=== PATIENT | female | born 1955 | race Caucasian/White ===

== ENCOUNTER → 2019-11-04 | Outpatient (CLI) | payer MEDICARE ==
--- NOTE | 2019-11-04 16:35 | BD ---
EXAMINATION TYPE: Axial Bone Density DATE OF EXAM: 11/04/2019 COMPARISON: NONE CLINICAL HISTORY: Height: 5 FT 2 IN Weight: 197 FRAX RISK QUESTIONS: Alcohol (3 or more units per day): NO Family History (Parent hip fracture): NO Glucocorticoids (More than 3mos): NO (Ex: prednisone, prednisolone, methylprednisolone, dexamethasone, and hydrocortisone). History of Fracture in Adulthood: NO Secondary Osteoporosis: 1. Type 1 Diabetes: NO 2. Hyperthyroidism: NO 3. Menopause before 45: NO 4. Malnutrition: NO 5. Chronic liver disease: NO Rheumatoid Arthritis: NO Current Tobacco Use: NO RISK FACTORS HISTORY OF: Family History of Osteoporosis: NO Active: YES Postmenopausal woman: AGE 55 MEDICATIONS: Additional Medications: XANAX, CITALOPRAM, LOVASTATIN, Additional History: EXAM MEASUREMENTS: Bone mineral densitometry was performed using the [employer]pirics System. Bone mineral density as measured about the Lumbar spine is: ----- L1-L4(G/cm2): 1.626 T Score Values are as follows: ----- L2: 2.2 ----- L3: 5.6 ----- L4: 4.7 ----- L1-L4: 3.7 BASELINE Bone mineral density about the R hip (g/cm2): 0.884 Bone mineral density about the L hip (g/cm2): 0.927 T Score values are as follows: -----R Neck: -1.1 -----L Neck: -0.8 -----R Total: 0.3 -----L Total: 0.7 BASELINE IMPRESSION: Normal (Values between +1 and -1 indicate normal bone mass). Consider repeating this study in 5 year s or sooner if there is some new clinical indication. NOTE: T-SCORE=SD OF THE YOUNG ADULT MEAN.
--- NOTE | 2019-11-09 12:27 | MM ---
Reason for exam: screening (asymptomatic). Last mammogram was performed 6 years and 2 months ago. History: Patient is postmenopausal. Taking unspecified hormones. Physical Findings: A clinical breast exam by your physician is recommended on an annual basis and results should be correlated with mammographic findings. MG 3D Screening Mammo W/Cad Bilateral CC and MLO view(s) were taken. Prior study comparison: August 19, 2013, bilateral MG screening mammo w CAD. July 20, 2002, bilateral diagnostic mammogram. There are scattered fibroglandular densities. Finding: There are typically benign round, grouped/clustered calcifications in the right breast. There is no discrete abnormality. ASSESSMENT: Benign, BI-RAD 2 RECOMMENDATION: Routine screening mammogram of both breasts in 1 year.
== END | disposition home or self-care (01) ==
LOC: RADMAMWWP 14:25
PROVIDERS: ATTEND Internal Medicine Geriatric Medicine
DX: Z12.31 Encounter for screening mammogram for malignant neoplasm of breast (principal); M81.0 Age-related osteoporosis without current pathological fracture
CPT/HCPCS: 77063; 77067; 77080

== ENCOUNTER 2020-08-29 22:14 | Inpatient (IN) | payer MEDICARE ==
[2020-08-29] MEDS ORDERED: SODIUM CHLORIDE 0.9% 1,000 ML IV STA ×2 (22:32)
[2020-08-29] MEDS ORDERED: MORPHINE SULFATE 4 MG/ML SYRINGE IV STA (22:32)
[2020-08-29] MEDS ORDERED: PANTOPRAZOLE 40 MG/10 ML VIAL IVP STA (22:32)
--- NOTE | 2020-08-29 22:41 | ED ---
Abdominal Pain HPI - General Chief Complaint: Abdominal Pain Stated Complaint: Back pain Time Seen by Provider: 08/29/20 22:32 Source: patient, RN notes reviewed, old records reviewed Mode of arrival: ambulatory Limitations: no limitations - History of Present Illness Initial Comments: This is a 65-year-old female DF for evaluation patient resents for severe abdominal pain severe anterior epigastric bowel pain with positive nausea vomiting no fevers. No diarrhea no prior history of similar pain. No recent surgeries or no significant surgical history. Patient is sent to ER for evaluation of possible pancreatitis or gallbladder disease MD Complaint: abdominal pain -: hour(s) Location: diffuse, epigastric Radiation: epigastric Migration to: epigastric Severity: moderate Severity scale (1-10): 4 Quality: stabbing Consistency: constant, intermittent Improves With: nothing Worsens With: nothing Context: sick contacts Associated Symptoms: nausea, vomiting Treatments Prior to Arrival: prescription analgesics - Related Data Home Medications Medication Instructions Recorded Confirmed ALPRAZolam [Xanax] 0.25 mg PO TID 08/23/13 08/30/20 Aspirin 81 mg PO DAILY 08/23/13 08/30/20 Citalopram Hydrobromide 40 mg PO DAILY 08/23/13 08/30/20 [Citalopram HBr] Multivitamins, Thera [Multivitamin 1 tab PO DAILY 08/23/13 08/30/20 (formulary)] Ascorbic Acid [Vitamin C] 1,000 mg PO HS 08/30/20 08/30/20 Atorvastatin [Lipitor] 20 mg PO HS 08/30/20 08/30/20 Baclofen [Lioresal] 10 mg PO BID PRN 08/30/20 08/30/20 Calcium Carbonate [Calcium] 600 mg PO HS 08/30/20 08/30/20 Cholecalciferol [Vitamin D3 (25 25 mcg PO HS 08/30/20 08/30/20 Mcg = 1000 Iu)] Girard-3 Fatty Acids/Fish Oil [Fish 1 cap PO HS 08/30/20 08/30/20 Oil 1,000 mg Softgel] Zinc 50 mg PO HS 08/30/20 08/30/20 Previous Rx's Medication Instructions Recorded HYDROcodone/APAP 5-325MG [[place] 1 each PO Q4HR PRN #18 tab 09/01/20 5-325] Allergies Allergy/AdvReac Type Severity Reaction Status Date / Time No Known Allergies Allergy Verified 08/30/20 07:04 Review of Systems ROS Statement: Those systems with pertinent positive or pertinent negative responses have been documented in the HPI. ROS Other: All systems not noted in ROS Statement are negative. Past Medical History Past Medical History: Hyperlipidemia, Hypertension History of Any Multi-Drug Resistant Organisms: None Reported Past Surgical History: Orthopedic Surgery Past Psychological History: Anxiety, Depression Smoking Status: Never smoker Past Alcohol Use History: Occasional Past Drug Use History: None Reported General Exam Limitations: no limitations General appearance: alert, in no apparent distress Head exam: Present: atraumatic, normocephalic, normal inspection Eye exam: Present: normal appearance, PERRL, EOMI. Absent: scleral icterus, conjunctival injection, periorbital swelling ENT exam: Present: normal exam, mucous membranes moist Neck exam: Present: normal inspection. Absent: tenderness, meningismus, lymphadenopathy Respiratory exam: Present: normal lung sounds bilaterally. Absent: respiratory distress, wheezes, rales, rhonchi, stridor Cardiovascular Exam: Present: regular rate, normal rhythm, normal heart sounds. Absent: systolic murmur, diastolic murmur, rubs, gallop, clicks GI/Abdominal exam: Present: soft, normal bowel sounds. Absent: distended, tenderness, guarding, rebound, rigid Extremities exam: Present: normal inspection, full ROM, normal capillary refill. Absent: tenderness, pedal edema, joint swelling, calf tenderness Back exam: Present: normal inspection Neurological exam: Present: alert, oriented X3, CN II-XII intact Psychiatric exam: Present: normal affect, normal mood Skin exam: Present: warm, dry, intact, normal color. Absent: rash Course Vital Signs 08/29/20 08/29/20 08/30/20 22:23 23:15 00:30 Temperature 98.0 F Pulse Rate 83 72 66 Pulse Rate [ Pulse Oximetery ] Respiratory 18 16 18 Rate Blood Pressure 184/98 141/60 132/60 O2 Sat by Pulse 97 99 96 Oximetry 08/30/20 08/30/20 08/30/20 02:00 04:42 12:15 Temperature 98.1 F 98.8 F Pulse Rate 66 64 71 Pulse Rate [ Pulse Oximetery ] Respiratory 18 18 18 Rate Blood Pressure 138/60 122/77 127/81 O2 Sat by Pulse 96 94 L 91 L Oximetry 08/30/20 08/30/20 08/30/20 15:10 18:02 20:00 Temperature Pulse Rate 74 78 Pulse Rate [ 81 Pulse Oximetery ] Respiratory 18 18 16 Rate Blood Pressure 122/77 125/74 O2 Sat by Pulse 92 L 93 L Oximetry - Reevaluation(s) Reevaluation #1: Medical record is reviewed Patient symptoms are improved here in the ER Patient informed results questions answered Medical Decision Making - Medical Decision Making 65 female DF for eval Brea pain acute pancreatitis new. No tumors noted. Patient does have some gallbladder disease, patient will be admitted for pain control and pills status, symptomatically therapy - Lab Data Result diagrams: 08/30/20 09:10 08/30/20 09:17 Lab Results 08/29/20 08/29/20 08/29/20 Range/Units 23:16 23:16 23:16 WBC 13.9 H (3.8-10.6) k/uL RBC 4.42 (3.80-5.40) m/uL Hgb 14.1 (11.4-16.0) gm/dL Hct 41.3 (34.0-46.0) % MCV 93.3 (80.0-100.0) fL MCH 31.8 (25.0-35.0) pg MCHC 34.1 (31.0-37.0) g/dL RDW 14.1 (11.5-15.5) % Plt Count 268 (150-450) k/uL MPV 6.5 Neutrophils % 73 % Lymphocytes % 18 % Monocytes % 4 % Eosinophils % 2 % Basophils % 0 % Neutrophils # 10.2 H (1.3-7.7) k/uL Lymphocytes # 2.5 (1.0-4.8) k/uL Monocytes # 0.6 (0-1.0) k/uL Eosinophils # 0.3 (0-0.7) k/uL Basophils # 0.1 (0-0.2) k/uL Sodium 140 (137-145) mmol/L Potassium 3.9 (3.5-5.1) mmol/L Chloride 103 (98-107) mmol/L Carbon Dioxide 27 (22-30) mmol/L Anion Gap 10 mmol/L BUN 20 H (7-17) mg/dL Creatinine 0.66 (0.52-1.04) mg/dL Est GFR (CKD-EPI)AfAm >90 (>60 ml/min/1.73 sqM) Est GFR (CKD-EPI)NonAf >90 (>60 ml/min/1.73 sqM) Glucose 163 H (74-99) mg/dL Plasma Lactic Acid Nitin 1.6 (0.7-2.0) mmol/L Calcium 10.6 H (8.4-10.2) mg/dL Total Bilirubin 0.2 (0.2-1.3) mg/dL AST 31 (14-36) U/L ALT 22 (4-34) U/L Alkaline Phosphatase 91 (38-126) U/L Troponin I (0.000-0.034) ng/mL Total Protein 7.2 (6.3-8.2) g/dL Albumin 4.3 (3.5-5.0) g/dL Amylase 499 H* (30-110) U/L Lipase 5163 H (23-300) U/L 08/29/20 Range/Units 23:16 WBC (3.8-10.6) k/uL RBC (3.80-5.40) m/uL Hgb (11.4-16.0) gm/dL Hct (34.0-46.0) % MCV (80.0-100.0) fL MCH (25.0-35.0) pg MCHC (31.0-37.0) g/dL RDW (11.5-15.5) % Plt Count (150-450) k/uL MPV Neutrophils % % Lymphocytes % % Monocytes % % Eosinophils % % Basophils % % Neutrophils # (1.3-7.7) k/uL Lymphocytes # (1.0-4.8) k/uL Monocytes # (0-1.0) k/uL Eosinophils # (0-0.7) k/uL Basophils # (0-0.2) k/uL Sodium (137-145) mmol/L Potassium (3.5-5.1) mmol/L Chloride (98-107) mmol/L Carbon Dioxide (22-30) mmol/L Anion Gap mmol/L BUN (7-17) mg/dL Creatinine (0.52-1.04) mg/dL Est GFR (CKD-EPI)AfAm (>60 ml/min/1.73 sqM) Est GFR (CKD-EPI)NonAf (>60 ml/min/1.73 sqM) Glucose (74-99) mg/dL Plasma Lactic Acid Nitin (0.7-2.0) mmol/L Calcium (8.4-10.2) mg/dL Total Bilirubin (0.2-1.3) mg/dL AST (14-36) U/L ALT (4-34) U/L Alkaline Phosphatase (38-126) U/L Troponin I <0.012 (0.000-0.034) ng/mL Total Protein (6.3-8.2) g/dL Albumin (3.5-5.0) g/dL Amylase (30-110) U/L Lipase (23-300) U/L - Radiology Data Radiology results: report reviewed (CTA chest abdomen pelvis ultrasound gallbladder is positive for gallstones), image reviewed Disposition Clinical Impression: Pancreatitis, Abdominal pain, Gallstones Disposition: ADMITTED IP TO THIS [facility] Condition: Good Is patient prescribed a controlled substance at d/c from ED?: No
[2020-08-29 23:41] LABS: Basophils # (A) 0.1 k/uL (0-0.2); Basophils % (A) 0 %; Eosinophils # (A) 0.3 k/uL (0-0.7); Eosinophils % (A) 2 %; HCT 41.3 % (34.0-46.0); HGB 14.1 gm/dL (11.4-16.0); Lymphocytes # (A) 2.5 k/uL (1.0-4.8); Lymphocytes % (A) 18 %; MCH 31.8 pg (25.0-35.0); MCHC 34.1 g/dL (31.0-37.0); MCV 93.3 fL (80.0-100.0); Mean Platelet Volume 6.5; Monocytes # (A) 0.6 k/uL (0-1.0); Monocytes % (A) 4 %; Neutrophils # (A) 10.2 k/uL (1.3-7.7); Neutrophils % (A) 73 %; Platelet Count 268 k/uL (150-450); RBC 4.42 m/uL (3.80-5.40); RDW 14.1 % (11.5-15.5); WBC 13.9 k/uL (3.8-10.6)
[2020-08-29 23:55] LABS: ALT 22 U/L (4-34); AST 31 U/L (14-36); African American GFR (CKD) >90 (>60 ml/min/1.73 sqM); Albumin 4.3 g/dL (3.5-5.0); Alkaline Phosphatase 91 U/L (38-126); Anion Gap 10 mmol/L; Blood Urea Nitrogen 20 mg/dL (7-17); Calcium 10.6 mg/dL (8.4-10.2); Carbon Dioxide 27 mmol/L (22-30); Chloride 103 mmol/L (98-107); Glucose 163 mg/dL (74-99); Non-African American GFR(CKD) >90 (>60 ml/min/1.73 sqM); Potassium 3.9 mmol/L (3.5-5.1); Sodium 140 mmol/L (137-145); Total Bilirubin 0.2 mg/dL (0.2-1.3); Total Protein 7.2 g/dL (6.3-8.2)
--- NOTE | 2020-08-30 00:02 | US ---
EXAMINATION TYPE: US gallbladder DATE OF EXAM: 08/29/2020 COMPARISON: NONE CLINICAL HISTORY: pain. LUQ pain, patient states history of gallstone EXAM MEASUREMENTS: Liver Length: 16.3 cm Gallbladder Wall: 0.3 cm Right Kidney: 9.6 x 4.7 x 4.3 cm *technical limitations due to patient's body habitus and large amount of overlying bowel content Pancreas: Obscured by bowel gas Liver: limited evaluation, best visualized intercostally. attenuating. possible cystic area = 1.3cm Gallbladder: contracted. stone = 0.9cm Evidence for sonographic Ortega's sign: no CBD: Obscured by overlying bowel gas Right Kidney: no evidence of hydronephrosis IMPRESSION: There is a single gallstone. No dilated ducts. Small hepatic cyst. Limited exam.
[2020-08-30 00:33] LABS: Amylase 499 U/L (30-110)
[2020-08-30] MEDS ORDERED: HYDROmorphone 1 MG/ML 1 ML SYRINGE IVP STA (00:48)
[2020-08-30 00:55] LABS: Lipase 5163 U/L (23-300)
--- NOTE | 2020-08-30 01:09 | CT ---
EXAM: CT Abdomen and Pelvis With Intravenous Contrast CLINICAL HISTORY: ITS.REASON CT Reason: abdominal pain TECHNIQUE: Axial computed tomography images of the abdomen and pelvis with intravenous contrast. CTDI is 29.6 mGy and DLP is 1222.7 mGy-cm. This CT exam was performed using one or more of the following dose reduction techniques: automated exposure control, adjustment of the mA and/or kV according to patient size, and/or use of iterative reconstruction technique. COMPARISON: No relevant prior studies available. FINDINGS: ABDOMEN: Liver: Unremarkable. Gallbladder and bile ducts: Unremarkable. Pancreas: Free fluid and inflammation around the pancreatic body/tail. Spleen: Unremarkable. Adrenals: Unremarkable. Kidneys and ureters: No hydronephrosis. Stomach and bowel: No bowel obstruction. No bowel wall thickening. Colonic diverticulosis. PELVIS: Appendix: No evidence of appendicitis. Bladder: Unremarkable. Reproductive: Unremarkable. ABDOMEN and PELVIS: Intraperitoneal space: Unremarkable. Bones/joints: No acute fractures. Levoscoliosis. Multilevel degenerative disc disease with at least moderate spinal canal stenosis at L2-3 and L3-4. Multilevel severe foraminal stenosis. Soft tissues: Unremarkable. Vasculature: No abdominal aortic aneurysm. Moderate atherosclerosis. Lymph nodes: No enlarged lymph nodes. IMPRESSION: 1. Free fluid and inflammation around the pancreas body and tail suggestive of pancreatitis. 2. Colonic diverticulosis. 3. Multilevel degenerative disc disease with at least moderate spinal canal stenosis at L2-3 and L3-4. Multilevel severe foraminal stenosis.
--- NOTE | 2020-08-30 01:12 | CT ---
EXAM: CT Angiography Chest With Intravenous Contrast CLINICAL HISTORY: ITS.REASON CT Reason: pain TECHNIQUE: Axial computed tomographic angiography images of the chest with intravenous contrast. CTDI is 11.2 mGy and DLP is 413.5 mGy-cm. This CT exam was performed using one or more of the following dose reduction techniques: automated exposure control, adjustment of the mA and/or kV according to patient size, and/or use of iterative reconstruction technique. MIP reconstructed images were created and reviewed. COMPARISON: No relevant prior studies available. FINDINGS: Pulmonary arteries: No filling defects. Aorta: No thoracic aortic aneurysm. Lungs: No mass. No consolidation. Subpleural reticulations are seen. Pleural space: No pneumothorax. No effusion. Heart: No cardiomegaly. No pericardial effusion. Bones/joints: No acute fracture or dislocation. Dextroscoliosis. Soft tissues: Mild hiatal hernia. Free fluid around the pancreatic body and tail. Lymph nodes: No enlarged lymph nodes. IMPRESSION: No acute intrathoracic findings. Subpleural reticulations possibly related to early interstitial lung disease. Mild hiatal hernia. Pancreatitis.
[2020-08-30] MEDS ORDERED: ONDANSETRON 4 MG/2 ML VIAL IVP PRN (01:29)
[2020-08-30] MEDS ORDERED: NALOXONE 0.4 MG/ML 1 ML VIAL IV PRN (01:29)
[2020-08-30] MEDS: SODIUM CHLORIDE 0.9% 1,000 ML IV SCH ×4 (01:43→21:00)
[2020-08-30] MEDS: HYDROmorphone 1 MG/ML 1 ML SYRINGE IVP PRN ×5 (04:45→20:59)
[2020-08-30 09:31] LABS: Basophils % (A) 0 %; Eosinophils # (A) 0.1 k/uL (0-0.7); Eosinophils % (A) 1 %; HCT 38.9 % (34.0-46.0); HGB 12.9 gm/dL (11.4-16.0); Lymphocytes # (A) 1.6 k/uL (1.0-4.8); Lymphocytes % (A) 15 %; MCH 31.3 pg (25.0-35.0); MCHC 33.2 g/dL (31.0-37.0); MCV 94.1 fL (80.0-100.0); Mean Platelet Volume 6.6; Monocytes # (A) 0.5 k/uL (0-1.0); Monocytes % (A) 5 %; Neutrophils # (A) 7.7 k/uL (1.3-7.7); Neutrophils % (A) 77 %; Platelet Count 242 k/uL (150-450); RBC 4.14 m/uL (3.80-5.40); RDW 14.2 % (11.5-15.5); WBC 10.1 k/uL (3.8-10.6)
[2020-08-30 09:43] LABS: ALT 20 U/L (4-34); AST 26 U/L (14-36); African American GFR (CKD) >90 (>60 ml/min/1.73 sqM); Alkaline Phosphatase 79 U/L (38-126); Anion Gap 4 mmol/L; Blood Urea Nitrogen 17 mg/dL (7-17); Calcium 9.5 mg/dL (8.4-10.2); Carbon Dioxide 31 mmol/L (22-30); Chloride 106 mmol/L (98-107); Glucose 118 mg/dL (74-99); Lipase 1998 U/L (23-300); Non-African American GFR(CKD) >90 (>60 ml/min/1.73 sqM); Potassium 4.6 mmol/L (3.5-5.1); Sodium 141 mmol/L (137-145); Total Bilirubin 0.4 mg/dL (0.2-1.3); Total Protein 6.6 g/dL (6.3-8.2)
[2020-08-30] MEDS: PANTOPRAZOLE 40 MG/10 ML VIAL IV SCH (12:19)
--- NOTE | 2020-08-30 12:30 | P.HPIM ---
History of Present Illness H&P Date: 08/30/20 Chief Complaint: Abd pain HISTORY OF PRESENT ILLNESS This is a 65-year-old female patient of Dr. Kellogg with past medical history of hypertension, hyperlipidemia, generalized anxiety disorder. Patient states that she developed abdominal pain yesterday. She had one drink yesterday at 4 PM which she only drinks alcohol occasionally. She had onset of abdominal pain around 6:30 and she initially thought it was just gas. She took 3 Tums without improvement and she had some heartburn medication over husbands that she took without improvement. She complains of nausea without vomiting. Patient came into [facility] emergency center for evaluation. She was afebrile, heart rate 83, blood pressure 184/98, pulse ox 97% on room air. Initial WBC 13.9, hemoglobin 14.1, platelet count 268. Electrolytes were normal with BUN of 20 and creatinine 0.66. Blood sugar 163. Calcium 10.6, total bilirubin and liver function tests were normal. Troponin was normal. Amylase 499. Lipase 5163. Coronal virus PCR not detected. Repeat blood work this morning revealed lipase of [address] angiogram of the chest revealed no acute intrathoracic findings. Subpleural reticulation's possibly related to early interstitial lung disease. Mild hiatal hernia. Pancreatitis. Gallbladder ultrasound revealed single gallstone. No dilated ducts. Small hepatic cyst. CT of the abdomen and pelvis with contrast revealed free fluid and inflammation around the pancreas body and tail suggestive of pancreatitis. Colonic divert iculosis. Multilevel degenerative disc disease with at least moderate spinal canal stenosis at L2-3 and L3 4 multilevel severe foraminal stenosis. REVIEW OF SYSTEMS Constitutional: No fever, no chills, no night sweats. No weight change. No weakness, fatigue or lethargy. No daytime sleepiness. EENT: No headache. No blurred vision or double vision, no loss of vision. No loss of Hearing, no ringing in the ears, no dizziness. No nasal drainage or congestion. No epistaxis. No sore throat. Lungs: No shortness of breath, cough, no sputum production. No wheezing. Cardiovascular: No chest pain, no lower extremity edema. No palpitations. No paroxysmal nocturnal dyspnea. No orthopnea. No lightheadedness or dizziness. No syncopal episodes. Abdominal: No abdominal pain. No nausea, vomiting. No diarrhea. No constipation. No bloody or tarry stools.. No loss of appetite. Genitourinary: No dysuria, increased frequency, urgency. No urinary retention. Musculoskeletal: No myalgias. No muscle weakness, no gait dysfunction, no frequent falls. No back pain. No neck pain. Integumentary: No wounds, no lesions. No rash or pruritus. No unusual bruising. No change in hair or nails. Neurologic: No aphasia. No facial droop. No change in mentation. No head injury. No headache. No paralysis. No paresthesia. Psychiatric: No depression. No anxiety. No mood swings. Endocrine: No abnormal blood sugars. No weight change. No excessive sweating or thirst. No cold intolerance. SOCIAL HISTORY Patient was a smoker one pack per day for 35 years and quit 12 years ago. She drinks alcohol rarely. No illicit drug use. Patient lives at home alone. Her last year. FAMILY HISTORY Mother in her 80s from coronary artery disease with history of dementia. Patient does not know history of her father. Patient has 1 brother with no major medical problems. She is a total of 5 sisters with strong history of diabetes and hypertension. One sister has gallbladder issues and one his colon cancer. Patient does not have any biological children. PHYSICAL EXAMINATION Gen: This is a 65-year-old female. Patient is resting on the ER stretcher and appears to be comfortable and in no acute distress. HEENT: Head is atraumatic, normocephalic. Pupils equal, round. Sclerae is anicteric. NECK: Supple. No JVD. No lymphadenopathy. No thyromegaly. LUNGS: Clear to auscultation. No wheezes or rhonchi. No intercostal retractions. HEART: Regular rate and rhythm. No murmur. ABDOMEN: Soft. Bowel sounds are present. No masses. Lateral upper tenderness. EXTREMITIES: No pedal edema. No calf tenderness. Dorsalis pedis +2 bilaterally. NEUROLOGICAL: Patient is awake, alert and oriented x3. Cranial nerves 2 through 12 are grossly intact. ASSESSMENT AND PLAN 1. Acute pancreatitis of unclear etiology. Continue IV fluids, Dilaudid as needed for pain, nothing by mouth status, consult added for GI. Repeat lipase in the morning. 2. Hypertension, not currently on medication, stable. 3. Hyperlipidemia. Lipitor 20 mg at bedtime and [place] 3 on hold. 4. Generalized anxiety disorder. Continue Xanax 0.25 mg 3 times daily, citalo pram 40 mg daily. 5. Chronic back pain. Continue baclofen 10 mg twice daily as needed. 6. GI prophylaxis. Protonix 40 mg IV daily. 7. DVT prophylaxis. Heparin subcu. Patient will be admitted to the hospital for a minimum of 2 night stay. DISCHARGE PLAN Home Impression and plan of care have been directed as dictated by the signing physician. Frances Dye nurse practitioner acting as scribe for signing physicia Past Medical History Past Medical History: Hyperlipidemia, Hypertension History of Any Multi-Drug Resistant Organisms: None Reported Past Surgical History: Orthopedic Surgery Past Psychological History: Anxiety, Depression Smoking Status: Never smoker Past Alcohol Use History: Occasional Past Drug Use History: None Reported Medications and Allergies Home Medications Medication Instructions Recorded Confirmed Type ALPRAZolam [Xanax] 0.25 mg PO TID 08/23/13 08/30/20 History Aspirin 81 mg PO DAILY 08/23/13 08/30/20 History Citalopram Hydrobromide 40 mg PO DAILY 08/23/13 08/30/20 History [Citalopram HBr] Multivitamins, Thera [Multivitamin] 1 tab PO DAILY 08/23/13 08/30/20 History Ascorbic Acid [Vitamin C] 1,000 mg PO HS 08/30/20 08/30/20 History Atorvastatin [Lipitor] 20 mg PO HS 08/30/20 08/30/20 History Baclofen [Lioresal] 10 mg PO BID PRN 08/30/20 08/30/20 History Calcium Carbonate [Calcium] 600 mg PO HS 08/30/20 08/30/20 History Cholecalciferol [Vitamin D3 (25 25 mcg PO HS 08/30/20 08/30/20 History Mcg = 1000 Iu)] [place]-3 Fatty Acids/Fish Oil [Fish 1 cap PO HS 08/30/20 08/30/20 History Oil 1,000 mg Softgel] Zinc 50 mg PO HS 08/30/20 08/30/20 History Allergies Allergy/AdvReac Type Severity Reaction Status Date / Time No Known Allergies Allergy Verified 08/30/20 07:04 Physical Exam Vitals: Vital Signs Temp Pulse Resp BP Pulse Ox 08/30/20 04:42 98.1 F 64 18 122/77 94 L 08/30/20 02:00 66 18 138/60 96 08/30/20 00:30 66 18 132/60 96 08/29/20 23:15 72 16 141/60 99 08/29/20 22:23 98.0 F 83 18 184/98 97 Intake and Output 08/29/20 08/30/20 08/30/20 22:59 06:59 14:59 Other: Weight 86.183 kg Results CBC & Chem 7: 08/30/20 09:10 08/30/20 09:17 Labs: Abnormal Lab Results - Last 24 Hours (Table) 08/29/20 08/29/20 08/30/20 Range/Units 23:16 23:16 09:17 WBC 13.9 H (3.8-10.6) k/uL Neutrophils # 10.2 H (1.3-7.7) k/uL Carbon Dioxide 31 H (22-30) mmol/L BUN 20 H (7-17) mg/dL Glucose 163 H 118 H (74-99) mg/dL Calcium 10.6 H (8.4-10.2) mg/dL Amylase 499 H* (30-110) U/L Lipase 5163 H 1998 H (23-300) U/L
[2020-08-30] MEDS: ALPRAZolam 0.25 MG TAB PO SCH ×2 (16:54→22:53)
[2020-08-30] MEDS: HEPARIN SODIUM,PORCINE/PF 5,000 UNIT/0.5 ML SYRINGE SQ SCH ×2 (16:54→22:53)
[2020-08-31] MEDS: BACLOFEN 10 MG TAB PO PRN ×2 (00:13→08:59)
[2020-08-31] MEDS: HYDROmorphone 1 MG/ML 1 ML SYRINGE IVP PRN ×7 (00:13→23:52)
[2020-08-31] MEDS: SODIUM CHLORIDE 0.9% 1,000 ML IV SCH ×4 (04:39→23:54)
[2020-08-31] MEDS: CITALOPRAM HYDROBROMIDE 20 MG TAB PO SCH (08:15)
[2020-08-31] MEDS: ALPRAZolam 0.25 MG TAB PO SCH ×3 (08:15→21:48)
[2020-08-31] MEDS: HEPARIN SODIUM,PORCINE/PF 5,000 UNIT/0.5 ML SYRINGE SQ SCH ×3 (08:15→23:04)
[2020-08-31] MEDS: PANTOPRAZOLE 40 MG/10 ML VIAL IV SCH (08:18)
--- NOTE | 2020-08-31 14:16 | P.PN ---
Subjective Progress Note Date: 08/31/20 HISTORY OF PRESENT ILLNESS This is a 65-year-old female patient of Dr. Kellogg with past medical history of hypertension, hyperlipidemia, generalized anxiety disorder. Patient states that she developed abdominal pain yesterday. She had one drink yesterday at 4 PM which she only drinks alcohol occasionally. She had onset of abdominal pain around 6:30 and she initially thought it was just gas. She took 3 Tums without improvement and she had some heartburn medication over husbands that she took without improvement. She complains of nausea without vomiting. Patient came into [facility] emergency center for evaluation. She was afebrile, heart rate 83, blood pressure 184/98, pulse ox 97% on room air. Initial WBC 13.9, hemoglobin 14.1, platelet count 268. Electrolytes were normal with BUN of 20 and creatinine 0.66. Blood sugar 163. Calcium 10.6, total bilirubin and liver function tests were normal. Troponin was normal. Amylase 499. Lipase 5163. Coronal virus PCR not detected. Repeat blood work this morning revealed lipase of [address] angiogram of the chest revealed no acute intrathoracic findings. Subpleural reticulation's possibly related to early interstitial lung disease. Mild hiatal hernia. Pancreatitis. Gallbladder ultrasound revealed single gallstone. No dilated ducts. Small hepatic cyst. CT of the abdomen and pelvis with contrast revealed free fluid and inflammation around the pancreas body and tail suggestive of pancreatitis. Colonic diverticulosis. Multilevel degenerative disc disease with at least moderate spinal canal stenosis at L2-3 and L3 4 multilevel severe foraminal stenosis. 08/31: Patient is seen today in follow-up. Her main concern is back pain most likely secondary to the bed. She has remained nothing by mouth. No nausea or vomiting. Diet will be advanced to clear liquids. Consult in place with GI. Repeat lipase is pending at 2:15 in the afternoon. Anticipate possible di scharge by tomorrow. REVIEW OF SYSTEMS Constitutional: No fever, no chills, no night sweats. No weight change. No weakness, fatigue or lethargy. No daytime sleepiness. EENT: No headache. No blurred vision or double vision, no loss of vision. No loss of Hearing, no ringing in the ears, no dizziness. No nasal drainage or congestion. No epistaxis. No sore throat. Lungs: No shortness of breath, cough, no sputum production. No wheezing. Cardiovascular: No chest pain, no lower extremity edema. No palpitations. No paroxysmal nocturnal dyspnea. No orthopnea. No lightheadedness or dizziness. No syncopal episodes. Abdominal: No abdominal pain. No nausea, vomiting. No diarrhea. No constipation. No bloody or tarry stools.. No loss of appetite. Genitourinary: No dysuria, increased frequency, urgency. No urinary retention. Musculoskeletal: No myalgias. No muscle weakness, no gait dysfunction, no frequent falls. No back pain. No neck pain. Integumentary: No wounds, no lesions. No rash or pruritus. No unusual bruising. No change in hair or nails. Neurologic: No aphasia. No facial droop. No change in mentation. No head injury. No headache. No paralysis. No paresthesia. Psychiatric: No depression. No anxiety. No mood swings. Endocrine: No abnormal blood sugars. No weight change. No excessive sweating or thirst. No cold intolerance. PHYSICAL EXAMINATION Gen: This is a 65-year-old female. Patient is resting in bed r and appears to be comfortable and in no acute distress. HEENT: Head is atraumatic, normocephalic. Pupils equal, round. Sclerae is anicteric. NECK: Supple. No JVD. No lymphadenopathy. No thyromegaly. LUNGS: Clear to auscultation. No wheezes or rhonchi. No intercostal retractions. HEART: Regular rate and rhythm. No murmur. ABDOMEN: Soft. Bowel sounds are present. No masses. Lateral upper tenderness. EXTREMITIES: No pedal edema. No calf tenderness. Dorsalis pedis +2 bilateral ly. NEUROLOGICAL: Patient is awake, alert and oriented x3. Cranial nerves 2 through 12 are grossly intact. ASSESSMENT AND PLAN 1. Acute pancreatitis of unclear etiology. Continue IV fluids, Dilaudid as needed for pain, nothing by mouth status, consult added for GI. Repeat lipase in the morning. 2. Hypertension, not currently on medication, stable. 3. Hyperlipidemia. Lipitor 20 mg at bedtime and [place] 3 on hold. 4. Generalized anxiety disorder. Continue Xanax 0.25 mg 3 times daily, citalopram 40 mg daily. 5. Chronic back pain. Continue baclofen 10 mg twice daily as needed. 6. GI prophylaxis. Protonix 40 mg IV daily. 7. DVT prophylaxis. Heparin subcu. DISCHARGE PLAN Home in the next 24 hours Impression and plan of care have been directed as dictated by the signing physician. Frances Dye nurse practitioner acting as scribe for signing physician. Objective - Vital Signs Vital signs: Vital Signs Temp 98.9 F 08/31/20 02:00 Pulse 92 08/31/20 02:00 Resp 16 08/31/20 02:00 BP 130/82 08/31/20 02:00 Pulse Ox 90 L 08/31/20 02:00 Intake & Output 08/30/20 08/31/20 08/31/20 18:59 06:59 18:59 Weight 86.183 kg Other: Voiding Method Toilet Toilet - Labs CBC & Chem 7: 08/30/20 09:10 08/30/20 09:17
[2020-08-31 20:24] VITALS: RESP 18
--- NOTE | 2020-08-31 23:08 | P.CONS ---
History of Present Illness - Reason for Consult Consult date: 08/31/20 Pancreatitis Requesting physician: Arnold Fields - Chief Complaint Abdominal back pain - History of Present Illness 65-year-old female with multiple medical comorbidities including anxiety, hyperlipidemia, remote history of tobacco abuse and hypertension who presented to the hospital for evaluation of abdominal back pain. The patient's reports pain which is present over the past 3-4 days. She describes it as sharp and constant in the left upper quadrant of her abdomen and into her back. Initially the patient's thought that the pain may be related to gas or reflux however was unable to gain any improvement in her symptoms with antacid therapy and gas relief. She denies any associated nausea or vomiting. She reports only very occasional alcohol use. She does have a remote history of tobacco abuse for she has been abstinent for years. She denies any new medications. She believes she may have had a remote history of pancreatitis once in the past. On presentation to the hospital she was found to have elevation in her amylase at 499 and lipase of 5163. Ultrasound of the gallbladder revealed a single gallstone with no ductal dilation and a small hepatic cyst. Computed tomography scan of the abdomen revealed free fluid and inflammation around the pancreas body and tail suggestive of pancreatitis with colonic diverticulosis and multilevel degenerat max disc disease. Currently she is reporting some improvement in her pain and tolerating some liquids. No signs or symptoms of GI bleeding. Liver enzymes significant for total bilirubin 0.4, alkaline phosphatase 79, AST 26 and ALT 20 with hemoglobin of 12.9 and platelet count of 242,000. Review of Systems REVIEW OF SYSTEMS: CONSTITUTIONAL: Denies any fevers, chills, weight change or fatigue. CARDIOVASCULAR: Denies any chest pain, palpitations high or low blood pressures RESPIRATORY: Denies any shortness of breath, hemoptysis or cough. GENITOURINARY: No dysuria or hematuria. MUSCULOSKELETAL: No weakness reported, but she does report back pain. SKIN: Denies any new rashes or lesions, jaundice or pallor. PSYCHIATRIC: Denies any depression but she does have a history of anxiety. NEUROLOGY: Denies headache, denies any new focal deficits. EARS/NOSE/THROAT: No recent hearing change, congestion, nasal discharge or sore throat. EYES: No pain in eyes, discharge or change in vision. GASTROINTESTINAL: As per HPI. Past Medical History Past Medical History: Hyperlipidemia History of Any Multi-Drug Resistant Organisms: None Reported Past Surgical History: Orthopedic Surgery Additional Past Surgical History / Comment(s): Rotator cuff on right shoulder Past Psychological History: Anxiety, Depression Smoking Status: Former smoker Past Alcohol Use History: Occasional Past Drug Use History: None Reported Additional History: Family history: Patient denies any family history of pancre atic cancer pancreatic disease. Medications and Allergies Home Medications Medication Instructions Recorded Confirmed Type ALPRAZolam [Xanax] 0.25 mg PO TID 08/23/13 08/30/20 History Aspirin 81 mg PO DAILY 08/23/13 08/30/20 History Citalopram Hydrobromide 40 mg PO DAILY 08/23/13 08/30/20 History [Citalopram HBr] Multivitamins, Thera [Multivitamin] 1 tab PO DAILY 08/23/13 08/30/20 History Ascorbic Acid [Vitamin C] 1,000 mg PO HS 08/30/20 08/30/20 History Atorvastatin [Lipitor] 20 mg PO HS 08/30/20 08/30/20 History Baclofen [Lioresal] 10 mg PO BID PRN 08/30/20 08/30/20 History Calcium Carbonate [Calcium] 600 mg PO HS 08/30/20 08/30/20 History Cholecalciferol [Vitamin D3 (25 25 mcg PO HS 08/30/20 08/30/20 History Mcg = 1000 Iu)] [place]-3 Fatty Acids/Fish Oil [Fish 1 cap PO HS 08/30/20 08/30/20 History Oil 1,000 mg Softgel] Zinc 50 mg PO HS 08/30/20 08/30/20 History Allergies Allergy/AdvReac Type Severity Reaction Status Date / Time No Known Allergies Allergy Verified 08/30/20 07:04 Physical Exam Vitals: Vital Signs Temp Pulse Pulse Resp BP BP Pulse Ox 08/31/20 12:49 99.3 F 63 17 166/83 91 L 08/31/20 02:00 98.9 F 92 16 130/82 90 L 08/30/20 20:30 98.9 F 81 16 127/79 92 L 08/30/20 20:16 98.8 F 78 18 125/74 93 L 08/30/20 20:00 81 16 Intake and Output 08/31/20 08/31/20 08/31/20 06:59 14:59 22:59 Intake Total 2100 Balance 2100 Intake: Intake, IV Titration 1400 Amount Sodium Chloride 0.9% 1, 1200 000 ml @ 150 mls/hr IV . Q6H40M ZARINA Rx#:[id number] Sodium Chloride 0.9% 1, 200 000 ml @ 50 mls/hr IV . Q20H ZARINA Rx#:[id number] Oral 700 Other: Voiding Method Toilet # Voids 5 On physical examination, patient appears comfortable in no apparent distress. HEAD: Normocephalic, atraumatic. EYES: No scleral icterus. No conjunctival injection. MOUTH: No lesions, tongue midline. NECK: Trachea midline, no gross abnormalities. CHEST: Decreased air entry in all lung remy. HEART: Regular rate and rhythm. ABDOMEN: Soft, obese, moderately tender to palpation. Bowel sounds are positive. No organomegaly. No guarding or rigidity. EXTREMITIES: No pedal edema. SKIN: No rashes, no jaundice. NEUROLOGIC: Alert and oriented x3. No focal deficits. Results CBC & Chem 7: 08/30/20 09:10 08/30/20 09:17 CT scan - abdomen: report reviewed (Computed tomography scan of the abdomen findings of uncomplicated pancreatitis, colonic diverticulosis in the genital distant disease.) Assessment and Plan (1) Pancreatitis Narrative/Plan: 65-year-old female presenting to the hospital with complaints of abdominal and back pain found to have marked elevation in her amylase and lipase with computed tomography scan findings of uncomplicated pancreatitis. Ultrasound with findings of a single gallstone with no ductal dilation and normal liver enzymes. Patient denies any new medications, no history of heavy alcohol use or other triggers. No family history of pancreatic cancer or pancreatic disease. Current Visit: Yes Status: Acute Code(s): K85.90 - ACUTE PANCREATITIS WITHOUT NECROSIS OR INFECTION, UNSP SNOMED Code(s): 89231228 (2) Diverticulosis Current Visit: Yes Status: Acute Code(s): K57.90 - DVRTCLOS OF INTEST, PART UNSP, W/O PERF OR ABSCESS W/O BLEED SNOMED Code(s): 772511925 (3) Abdominal pain Current Visit: Yes Status: Acute Code(s): R10.9 - UNSPECIFIED ABDOMINAL PAIN SNOMED Code(s): 92653150 Plan: Supportive care Clear liquid diet Advance to low-fat as tolerated Continue to monitor CBC, BMP, LFTs CT and ultrasound imaging reviewed Continue aggressive IV fluid hydration Continue pain control Triglyceride level ordered Recommend MRI of the abdomen and 6-8 weeks to ensure resolution of pancreatitis and rule out pancreatic cyst or mass after discharge May benefit from surgical evaluation either prior to discharge or in outpatient setting given findings of gallstones although no evidence of a stone which was passed through the bile duct either on imaging or on laboratory evaluation Thank you for allowing us to participate in the care of the patient
[2020-09-01] MEDS: HYDROmorphone 1 MG/ML 1 ML SYRINGE IVP PRN ×2 (05:07→08:08)
[2020-09-01] MEDS: BACLOFEN 10 MG TAB PO PRN ×2 (06:01→08:08)
[2020-09-01] MEDS: CITALOPRAM HYDROBROMIDE 20 MG TAB PO SCH (08:02)
[2020-09-01] MEDS: ALPRAZolam 0.25 MG TAB PO SCH (08:02)
[2020-09-01] MEDS: HEPARIN SODIUM,PORCINE/PF 5,000 UNIT/0.5 ML SYRINGE SQ SCH (08:02)
[2020-09-01] MEDS: PANTOPRAZOLE 40 MG/10 ML VIAL IV SCH (08:02)
[2020-09-01] MEDS ORDERED: HYDROcodone/APAP 5-325MG 1 EACH TAB PO PRN (08:58)
[2020-09-01] MEDS ORDERED: HYDROmorphone 1 MG/ML 1 ML SYRINGE IVP PRN (09:00)
--- NOTE | 2020-09-01 11:01 | P.DS ---
Providers Date of admission: 08/30/20 01:29 Expected date of discharge: 09/01/20 Attending physician: Jaden Orellana Consults: 08/30/20 12:20 Consult Physician Routine Consulting Provider: Shirley Fox Consult Reason/Comments: pancreatitis Do you want consulting provider notified?: Yes 09/01/20 08:57 Consult Physician Routine Consulting Provider: José Miguel Dang Consult Reason/Comments: gallstones, pancreatitis Do you want consulting provider notified?: Yes Primary care physician: [facility] Course: HISTORY OF PRESENT ILLNESS This is a 65-year-old female patient of Dr. Kellogg with past medical history of hypertension, hyperlipidemia, generalized anxiety disorder. Patient states that she developed abdominal pain yesterday. She had one drink yesterday at 4 PM which she only drinks alcohol occasionally. She had onset of abdominal pain around 6:30 and she initially thought it was just gas. She took 3 Tums without improvement and she had some heartburn medication over husbands that she took without improvement. She complains of nausea without vomiting. Patient came into [facility] emergency center for evaluation. She was afebrile, heart rate 83, blood pressure 184/98, pulse ox 97% on room air. Initial WBC 13.9, hemoglobin 14.1, platelet count 268. Electrolytes were normal with BUN of 20 and creatinine 0.66. Blood sugar 163. Calcium 10.6, total bilirubin and liver function tests were normal. Troponin was normal. Amylase 499. Lipase 5163. Coronal virus PCR not detected. Repeat blood work this morning revealed lipase of [address] angiogram of the chest revealed no acute intrathoracic findings. Subpleural reticulation's possibly related to early interstitial lung disease. Mild hiatal hernia. Pancreatitis. Gallbladder ultrasound revealed single gallstone. No dilated ducts. Small hepatic cyst. CT of the abdomen and pelvis with contrast revealed free fluid and inflammation around the pancreas body and tail suggestive of pancreatitis. Colonic diverticulosis. Multilevel degenerative disc disease with at least moderate spinal canal stenosis at L2-3 and L3 4 multilevel severe foraminal stenosis. 08/31: Patient is seen today in follow-up. Her main concern is back pain most likely secondary to the bed. She has remained nothing by mouth. No nausea or vomiting. Diet will be advanced to clear liquids. Consult in place with GI. Repeat lipase is pending at 2:15 in the afternoon. Anticipate possible discharge by tomorrow. 09/01: Patient continues to have abdominal pain. She states it still there and at worst #5. She has been receiving Dilaudid around the clock every 3 hours which will transition to [place] and provide a prescription for 3 day course. She understands she will need follow-up with Dr. Orellana for further pain medication. Opioid start talking form was reviewed with the patient and patient verbalized understanding. Patient has been seen by GI with recommendations to advance diet slowly to low-fat and MRI as an outpatient and 6 8 weeks to ensure resolution of pancreatitis and rule out pancreatic cyst or mass. GI also recommended consult with surgery regarding gallstones. Consult added for Dr. Dang who will be seeing the patient this afternoon. Diet advance to full liquids. Patient will be discharged home today after seen by Dr. Dang. ASSESSMENT AND PLAN 1. Acute pancreatitis of unclear etiology. 2. Hypertension, not currently on medication, stable. 3. Hyperlipidemia. 4. Generalized anxiety disorder. 5. Chronic back pain. DISCHARGE PLAN Home Impression and plan of care have been directed as dictated by the signing physician. Frances Dye nurse practitioner acting as scribe for signing physician. Patient Condition at Discharge: Good Plan - Discharge Summary Discharge Rx Participant: Yes New Discharge Prescriptions: New HYDROcodone/APAP 5-325MG [[place] 5-325] 1 each PO Q4HR PRN #18 tab PRN Reason: Pain Continue Citalopram Hydrobromide [Citalopram HBr] 40 mg PO DAILY Aspirin 81 mg PO DAILY ALPRAZolam [Xanax] 0.25 mg PO TID Multivitamins, Thera [Multivitamin (formulary)] 1 tab PO DAILY Zinc 50 mg PO HS Atorvastatin [Lipitor] 20 mg PO HS Ascorbic Acid [Vitamin C] 1,000 mg PO HS Cholecalciferol [Vitamin D3 (25 Mcg = 1000 Iu)] 25 mcg PO HS [place]-3 Fatty Acids/Fish Oil [Fish Oil 1,000 mg Softgel] 1 cap PO HS Calcium Carbonate [Calcium] 600 mg PO HS Baclofen [Lioresal] 10 mg PO BID PRN PRN Reason: Muscle Spasm Discharge Medication List ALPRAZolam [Xanax] 0.25 mg PO TID 08/23/13 [History] Aspirin 81 mg PO DAILY 08/23/13 [History] Citalopram Hydrobromide [Citalopram HBr] 40 mg PO DAILY 08/23/13 [History] Multivitamins, Thera [Multivitamin (formulary)] 1 tab PO DAILY 08/23/13 [History] Ascorbic Acid [Vitamin C] 1,000 mg PO HS 08/30/20 [History] Atorvastatin [Lipitor] 20 mg PO HS 08/30/20 [History] Baclofen [Lioresal] 10 mg PO BID PRN 08/30/20 [History] Calcium Carbonate [Calcium] 600 mg PO HS 08/30/20 [History] Cholecalciferol [Vitamin D3 (25 Mcg = 1000 Iu)] 25 mcg PO HS 08/30/20 [History] [place]-3 Fatty Acids/Fish Oil [Fish Oil 1,000 mg Softgel] 1 cap PO HS 08/30/20 [History] Zinc 50 mg PO HS 08/30/20 [History] HYDROcodone/APAP 5-325MG [[place] 5-325] 1 each PO Q4HR PRN #18 tab 09/01/20 [Rx] Follow up Appointment(s)/Referral(s): Jaden Orellana MD [Primary Care Provider] - 1 Week José Miguel Dang DO [Doctor of Osteopathic Medicine] - 2 Weeks Discharge Disposition: HOME SELF-CARE
[2020-09-01 12:00] VITALS: BP 120/71; PULSE 73; TEMP 98.4
--- NOTE | 2020-09-01 13:13 | P.GSCN ---
History of Present Illness Consult date: 09/01/20 History of present illness: 65-year-old female presented to the emergency department with complaints of abdominal pain. She states that the pain started suddenly and she believed it to be heartburn or gas. She did try [id number] antireflux medications without success. She also complained of nausea. She denied any vomiting episodes. She admitted to one drink of alcohol prior to her arrival, however states that she does not have a significant alcohol consumption history. On evaluation, patient was noted to have a significantly elevated lipase and amylase and CT of the abdomen and pelvis was concerning for pancreatitis. Gallbladder ultrasound was also performed which did reveal single gallstone with no dilated ducts. During her admission, patient was treated for pancreatitis episode and states that her abdominal pain has been improving. Surgeries consult and secondary to finding of gallstone and possible gallstone peritonitis. Review of Systems All systems: negative Past Medical History Past Medical History: Hyperlipidemia History of Any Multi-Drug Resistant Organisms: None Reported Past Surgical History: Orthopedic Surgery Additional Past Surgical History / Comment(s): Rotator cuff on right shoulder Past Psychological History: Anxiety, Depression Smoking Status: Former smoker Past Alcohol Use History: Occasional Past Drug Use History: None Reported Medications and Allergies Home Medications Medication Instructions Recorded Confirmed Type ALPRAZolam [Xanax] 0.25 mg PO TID 08/23/13 08/30/20 History Aspirin 81 mg PO DAILY 08/23/13 08/30/20 History Citalopram Hydrobromide 40 mg PO DAILY 08/23/13 08/30/20 History [Citalopram HBr] Multivitamins, Thera [Multivitamin 1 tab PO DAILY 08/23/13 08/30/20 History (formulary)] Ascorbic Acid [Vitamin C] 1,000 mg PO HS 08/30/20 08/30/20 History Atorvastatin [Lipitor] 20 mg PO HS 08/30/20 08/30/20 History Baclofen [Lioresal] 10 mg PO BID PRN 08/30/20 08/30/20 History Calcium Carbonate [Calcium] 600 mg PO HS 08/30/20 08/30/20 History Cholecalciferol [Vitamin D3 (25 25 mcg PO HS 08/30/20 08/30/20 History Mcg = 1000 Iu)] [place]-3 Fatty Acids/Fish Oil [Fish 1 cap PO HS 08/30/20 08/30/20 History Oil 1,000 mg Softgel] Zinc 50 mg PO HS 08/30/20 08/30/20 History HYDROcodone/APAP 5-325MG [[place] 1 each PO Q4HR PRN #18 tab 09/01/20 Rx 5-325] Allergies Allergy/AdvReac Type Severity Reaction Status Date / Time No Known Allergies Allergy Verified 08/30/20 07:04 Surgical - Exam Osteopathic Statement: *. No significant issues noted on an osteopathic structural exam other than those noted in the History and Physical/Consult. Vital Signs Temp Pulse Resp BP Pulse Ox 98.0 F 83 18 184/98 97 08/29/20 22:23 08/29/20 22:23 08/29/20 22:23 08/29/20 22:23 08/29/20 22:23 - General well nourished, no distress - Eyes PERRL - Neck trachea midline - Respiratory normal respiratory effort - Abdomen Soft, nontender, nondistended, no rebound, no guarding - Psychiatric oriented to time, oriented to person, oriented to place Results - Labs 08/30/20 09:10 08/30/20 09:17 Abnormal Lab Results - Last 24 Hours (Table) 08/31/20 Range/Units 06:35 Lipase 156 H (14-63) U/L Assessment and Plan Plan: 65-year-old female with acute pancreatitis, possibly secondary to gallstone disease. Patient has significantly improved clinically since her arrival. She denies having previous pancreatitis episodes. Plan from the medicine team is for discharge today based on the patient's clinical improvement. I did discuss this with her and likely plan for cholecystectomy in the near future. We will plan for outpatient follow-up in the surgical clinic and surgical planning for cholecystectomy at that time. Patient is agreeable with this plan. She is to return to the emergency department with any significant increase in abdominal pain.
[2020-09-03 12:16] LABS: IgG Subclass 3 27.7 mg/dL (11.0-85.0); IgG Subclass 4 25.4 mg/dL (3.0-175.0)
[2020-09-05 12:20] LABS: ANA Pattern Homogeneous; ANA Pattern 2 Nucleolar
== END 2020-09-01 11:35 | disposition home or self-care (01) | DRG 440 ==
LOC: EC 22:14 → 5NMEDONC 08-30 01:29
PROVIDERS: ADMIT Internal Medicine Geriatric Medicine; ATTEND Internal Medicine Geriatric Medicine
DX: K85.90 Acute pancreatitis without necrosis or infection, unspecified (principal); K85.10 Biliary acute pancreatitis without necrosis or infection; Z87.891 Personal history of nicotine dependence; I10 Essential (primary) hypertension; E78.5 Hyperlipidemia, unspecified; G89.29 Other chronic pain; M48.061 Spinal stenosis, lumbar region without neurogenic claudication; F41.1 Generalized anxiety disorder; M51.36 Other intervertebral disc degeneration, lumbar region; K80.20 Calculus of gallbladder without cholecystitis without obstruction; K57.30 Diverticulosis of large intestine without perforation or abscess without bleeding; F32.9 Major depressive disorder, single episode, unspecified; K44.9 Diaphragmatic hernia without obstruction or gangrene; K76.89 Other specified diseases of liver; Z79.82 Long term (current) use of aspirin; Z79.899 Other long term (current) drug therapy
CPT/HCPCS: 36415; 71275; 74177; 76705; 80053; 82150; 82787; 83605; 83690; 84478; 84484; 85025; 86038; 86039; 87635; 93005; 96361; 96374; 96375; 99285

== ENCOUNTER 2020-10-17 08:30 | Day surgery (SDC) | payer MEDICARE ==
[2020-10-14 09:37] VITALS: BMI 29.9
[~2020-10-17 08:30] MED LIST: DEXAMETHASONE SOD PHOSPHATE 4 MG/ML 1 ML VIAL IV ONE; HEPARIN SODIUM,PORCINE/PF 5,000 UNIT/0.5 ML SYRINGE SQ PRN; HYDROmorphone 0.5 MG/0.5 ML SYRINGE IVP PRN; LACTATED RINGERS 1,000 ML IV SCH; LIDOCAINE 1% (10MG/ML) FOR IV START INTRADERMA PRN; MIDAZOLAM 2 MG/2 ML VIAL IV PRN; ONDANSETRON 4 MG/2 ML VIAL IVP ONE
[2020-10-17] MEDS ORDERED: GABAPENTIN 300 MG CAP PO PRN (09:04)
[2020-10-17] MEDS ORDERED: ACETAMINOPHEN TAB 500 MG TAB PO PRN (09:04)
[2020-10-17] MEDS ORDERED: INDOCYANINE GREEN 25 MG VIAL IV PRN (09:04)
[2020-10-17 09:12] VITALS: TEMP 97.4
[2020-10-17] MEDS ORDERED: MELOXICAM 7.5 MG TAB PO SCH (09:15)
[2020-10-17] MEDS ORDERED: LIDOCAINE 1% (10MG/ML) FOR IV START SQ ONE (09:22)
--- NOTE | 2020-10-17 09:22 | P.GSHP ---
History of Present Illness H&P Date: 10/17/20 CHIEF COMPLAINT: Cholecystitis HISTORY OF PRESENT ILLNESS: The patient is a 65-year-old female who presents with history of epigastric including right upper quadrant abdominal pain. She underwent diagnostic studies for her gallbladder. Separately her clinical picture was consistent with cholecystitis. Now she presents for surgical intervention. PAST MEDICAL HISTORY: Please see list PAST SURGICAL HISTORY: Please see list MEDICATIONS: Please see list ALLERGIES: Please see list SOCIAL HISTORY: Please see list FAMILY HISTORY: Please see list REVIEW OF ORGAN SYSTEMS: CONSTITUTIONAL: No reports of fevers or chills. HEENT: Denies any troubles with the vision or hearing. PHYSICAL EXAM: VITAL SIGNS: Afebrile vital signs stable GENERAL: Well-developed pleasant in no acute distress. HEENT: No scleral icterus. Extraocular movements grossly intact. Moist buccal mucosa. NECK: Supple without lymphadenopathy. CHEST: Unlabored respirations. Equal bilateral excursions. CARDIOVASCULAR: Regular rate regular rhythm rhythm. Distal 2+ pulses. ABDOMEN: Soft, nondistended. Tender along the epigastrium and right upper quadrant. MUSCULOSKELETAL: No clubbing, cyanosis, or edema. NEURO: Cranial nerves II to XII within normal limits. No focal or lateralizing signs. PSYCH: Alert and oriented to person, place and time. SKIN: Well-perfused good skin turgor. ASSESSMENT: 1. Epigastric and right upper quadrant abdominal pain 2. Chronic cholecystitis 3. Symptomatic gallstones. PLAN: 1. Will need a robotic cholecystectomy possible open. Benefits and risks were described. 2. Heparin for DVT prophylaxis 5000 units. 3. Antibiotic prophylaxis. Past Medical History Past Medical History: Hyperlipidemia, Hypertension Additional Past Medical History / Comment(s): pancreatitis History of Any Multi-Drug Resistant Organisms: None Reported Past Surgical History: Orthopedic Surgery Additional Past Surgical History / Comment(s): Rotator cuff on right shoulder Past Anesthesia/Blood Transfusion Reactions: No Reported Reaction, Motion Sickness Smoking Status: Former smoker - Past Family History Sister(s) Family Medical History: Cancer Additional Family Medical History / Comment(s): colon cancer Medications and Allergies Home Medications Medication Instructions Recorded Confirmed Type ALPRAZolam [Xanax] 0.25 mg PO TID PRN 08/23/13 10/17/20 History Citalopram Hydrobromide 40 mg PO DAILY 08/23/13 10/17/20 History [Citalopram HBr] Multivitamins, Thera [Multivitamin 1 tab PO DAILY 08/23/13 10/17/20 History (formulary)] Ascorbic Acid [Vitamin C] 500 mg PO HS 08/30/20 10/17/20 History Atorvastatin [Lipitor] 20 mg PO HS 08/30/20 10/17/20 History Baclofen [Lioresal] 10 mg PO BID PRN 08/30/20 10/17/20 History Cholecalciferol [Vitamin D3 (25 125 mcg PO HS 08/30/20 10/17/20 History Mcg = 1000 Iu)] Zinc 50 mg PO HS 08/30/20 10/17/20 History Acetaminophen Tab [Tylenol Tab] 500 mg PO DAILY PRN 10/14/20 10/17/20 History Calcium Carbonate/Vitamin D3 1 each PO DAILY 10/14/20 10/17/20 History [Calcium 600 mg-Vit D3 5 mcg (200 unit)] Diazepam [Valium] 5 mg PO TID PRN 10/14/20 10/17/20 History [place]-3 Fatty Acids/Fish Oil [Fish 1 each PO DAILY 10/17/20 10/17/20 History Oil 1,000 mg Softgel] Allergies Allergy/AdvReac Type Severity Reaction Status Date / Time No Known Allergies Allergy Verified 10/17/20 08:58 Surgical - Exam Vital Signs Temp Pulse Resp BP Pulse Ox 97.4 F L 74 16 113/74 94 L 10/17/20 09:11 10/17/20 09:11 10/17/20 09:11 10/17/20 09:11 10/17/20 09:11
[2020-10-17 09:47] LABS: Basophils # (A) 0.1 k/uL (0-0.2); Basophils % (A) 1 %; Eosinophils # (A) 0.3 k/uL (0-0.7); Eosinophils % (A) 3 %; HCT 44.1 % (34.0-46.0); HGB 14.1 gm/dL (11.4-16.0); Lymphocytes # (A) 1.7 k/uL (1.0-4.8); Lymphocytes % (A) 19 %; MCH 30.4 pg (25.0-35.0); MCHC 31.9 g/dL (31.0-37.0); MCV 95.1 fL (80.0-100.0); Mean Platelet Volume 6.4; Monocytes # (A) 0.3 k/uL (0-1.0); Monocytes % (A) 4 %; Neutrophils # (A) 6.5 k/uL (1.3-7.7); Neutrophils % (A) 72 %; Platelet Count 304 k/uL (150-450); RBC 4.63 m/uL (3.80-5.40); RDW 14.2 % (11.5-15.5)
[2020-10-17 09:57] LABS: ALT 20 U/L (4-34); AST 29 U/L (14-36); African American GFR (CKD) >90 (>60 ml/min/1.73 sqM); Albumin 4.4 g/dL (3.5-5.0); Alkaline Phosphatase 86 U/L (38-126); Anion Gap 5 mmol/L; Blood Urea Nitrogen 16 mg/dL (7-17); Carbon Dioxide 29 mmol/L (22-30); Chloride 107 mmol/L (98-107); Glucose 125 mg/dL (74-99); Non-African American GFR(CKD) 88 (>60 ml/min/1.73 sqM); Potassium 4.6 mmol/L (3.5-5.1); Sodium 141 mmol/L (137-145); Total Bilirubin 0.3 mg/dL (0.2-1.3); Total Protein 7.1 g/dL (6.3-8.2)
[2020-10-17] MEDS ORDERED: GLYCOPYRROLATE 0.2 MG/ML 2 ML VIAL ONE (10:45)
[2020-10-17] MEDS ORDERED: ROCURONIUM 10 MG/ML (5 ML VIAL) IV ONE (10:45)
[2020-10-17] MEDS ORDERED: HYDROmorphone (PF) 1 MG/ML ONE (10:45)
[2020-10-17] MEDS ORDERED: INDOCYANINE GREEN 25 MG VIAL IV ONE (10:45)
[2020-10-17] MEDS ORDERED: NEOSTIGMINE 1 MG/ML 10 ML VIAL ONE (10:45)
[2020-10-17] MEDS ORDERED: SUCCINYLCHOLINE CHLORIDE 100 MG/5 ML SYR IV ONE (10:45)
[2020-10-17] MEDS ORDERED: LIDOCAINE 1% INJ 10MG/ML (20 ML MDV) ONE (10:45)
[2020-10-17] MEDS ORDERED: fentaNYL (PF) 50 MCG/ML 2 ML AMP ONE (10:45)
[2020-10-17] MEDS ORDERED: MIDAZOLAM 2 MG/2 ML VIAL ONE (10:45)
[2020-10-17] MEDS ORDERED: ePHEDrine SULFATE/0.9% NACL/PF 50 MG/5 ML SYRINGE IV ONE (10:45)
[2020-10-17] MEDS ORDERED: PROPOFOL 10 MG/ML 20 ML VIAL IV ONE (10:45)
[2020-10-17] MEDS ORDERED: BUPIVACAINE (PF) 0.25% 30 ML VIAL SQ ONE (11:09)
[2020-10-17] MEDS ORDERED: LACTATED RINGERS 1,000 ML IV ONE (11:15)
--- NOTE | 2020-10-17 12:17 | P.OP ---
Date of Procedure: 10/17/20 Description of Procedure: SURGEON: AMANDA FLORES MD PREOPERATIVE DIAGNOSES: 1. Chronic cholecystitis with cholelithiasis 2. Right upper quadrant abdominal pain 3. Hyperlipidemia 4. History of gallstone pancreatitis 5. Depressive disorder 6. Generalized anxiety disorder 7. Obesity due to excess calories, BMI 30.3 POSTOPERATIVE DIAGNOSES: 1. Chronic cholecystitis with cholelithiasis 2. Right upper quadrant abdominal pain 3. Hyperlipidemia 4. History of gallstone pancreatitis 5. Depressive disorder 6. Generalized anxiety disorder 7. Obesity due to excess calories, BMI 30.3 8. Peritoneal adhesions, right upper quadrant OPERATION: 1. Robotic-assisted da Rebeka Xi laparoscopic lysis of adhesions 2. Robotic-assisted da Rebeka Xi laparoscopic cholecystectomy, multiport with FIREFLY ESTIMATED BLOOD LOSS: 5 mL. SPECIMENS REMOVED: Gallbladder. OPERATIVE FINDINGS: 1. Moderate scarring over entire gallbladder with peritoneal adhesions, pericholecystic with features of chronic cholecystitis 2. Severe adhesions requiring extensive lysis of adhesions INDICATIONS: The patient is a 65-year-old female who presents with symptomatic gallstones. Robotic assisted laparoscopic approach was described. Benefits and risks of the procedure including but not limited to bleeding, infection, injury to the biliary tree was described. Informed consent was obtained. DESCRIPTION OF PROCEDURE: Patient was brought to the operating room, placed in supine position. After general induction, the abdomen had been prepped and draped in standard sterile fashion. The robotic da Rebeka XI system was primed. After a timeout protocol was performed, the patient had been prepped and draped in standard sterile fashion. The patient was injected with indocyanine green. A 5 mm 0 degrees laparoscopic trocar entry was performed along the left upper quadrant. The abdomen insufflated to 15 mmHg pressure which was tolerated well. Diagnostic laparoscopy demonstrated no injury to bowel viscera or mesentery. The liver surface was unremarkable. Next, two 8 mm robotic ports were placed along the right upper abdomen. The camera 8-mm port was maintained along the epigastrium. Another 8 mm port was placed along the left upper abdominal wall after exchanging the 5 mm port. Please note that the ports were placed at least 10 to 15 cm away from the target anatomy of the gallbladder. The robot was docked along the left lateral abdomen. The patient was repositioned in reverse Trendelenburg position. Using a grasper for arm 3, a grasper for arm 4, including hook cautery for arm 1, the robotic system was docked and primed as described. Instruments were interchanged by the assistant community director including hook cautery, Bovie cautery and clip appliers. I had sat at the console. The gallbladder was scarred with peritoneal adhesions. Lysis of adhesions was performed to free the gallbladder from the surrounding tissues over half the length of the procedure. Next attention was brought to the infundibulum and cystic structures. The infundibulum and cystic duct were dissected free from surrounding tissues. The cystic duct was isolated. FIREFLY was used to identify the cystic artery and cystic structures. A critical view of safety was obtained. Large PLASTIC clips were used throughout the entire case. Using a clip transport rn, 2 clips were placed at the junction of the infundibulum and cystic duct. The cystic duct was divided between clips. Next, the cystic artery was similarly clipped and cauterized. Electro-Bovie cautery was used to remove the gallbladder from the hepatic fossa. Hemostasis was checked and found to be adequate. The robot was undocked. I re-scrubbed into the case. Using a 10 mm Endo Catch bag via the left upper quadrant incision, the specimen was removed from the abdominal cavity. All pneumoperitoneum instruments were evacuated from the abdominal cavity. The incisions were reapproximated using 4-0 Monocryl in an interrupted subcuticular fashion. Fascial defects were less than 8 mm in size. Please note along the trocar sites, local anesthetic was placed as a field block prior to insertion of all instruments. Liquid glue was applied to the skin. At the end of the procedure needle, sponge, and instrument count had been verified correct by the surgical services assistant. The patient was transferred to postanesthesia care unit in stable condition. Intraoperative films were shared with the patient's family. Plan - Discharge Summary Discharge Rx Participant: Yes New Discharge Prescriptions: New Simethicone [Gas-X] 125 mg PO AC-TID PRN #20 capsule PRN Reason: Pain Ibuprofen [Motrin] 600 mg PO Q8HR PRN #30 tab PRN Reason: Pain Acetaminophen Tab [Tylenol Tab] 1,000 mg PO Q6HR PRN #30 tablet PRN Reason: Pain Continue Citalopram Hydrobromide [Citalopram HBr] 40 mg PO DAILY ALPRAZolam [Xanax] 0.25 mg PO TID PRN PRN Reason: Anxiety Multivitamins, Thera [Multivitamin (formulary)] 1 tab PO DAILY Zinc 50 mg PO HS Atorvastatin [Lipitor] 20 mg PO HS Ascorbic Acid [Vitamin C] 500 mg PO HS Calcium Carbonate/Vitamin D3 [Calcium 600 mg-Vit D3 5 mcg (200 unit)] 1 each PO DAILY [place]-3 Fatty Acids/Fish Oil [Fish Oil 1,000 mg Softgel] 1 each PO DAILY Cholecalciferol [Vitamin D3 (25 Mcg = 1000 Iu)] 125 mcg PO HS Baclofen [Lioresal] 10 mg PO BID PRN PRN Reason: Muscle Spasm Diazepam [Valium] 5 mg PO TID PRN PRN Reason: Anxiety Discontinued Acetaminophen Tab [Tylenol Tab] 500 mg PO DAILY PRN PRN Reason: Pain Discharge Medication List ALPRAZolam [Xanax] 0.25 mg PO TID PRN 08/23/13 [History] Citalopram Hydrobromide [Citalopram HBr] 40 mg PO DAILY 08/23/13 [History] Multivitamins, Thera [Multivitamin (formulary)] 1 tab PO DAILY 08/23/13 [History] Ascorbic Acid [Vitamin C] 500 mg PO HS 08/30/20 [History] Atorvastatin [Lipitor] 20 mg PO HS 08/30/20 [History] Baclofen [Lioresal] 10 mg PO BID PRN 08/30/20 [History] Cholecalciferol [Vitamin D3 (25 Mcg = 1000 Iu)] 125 mcg PO HS 08/30/20 [History] Zinc 50 mg PO HS 08/30/20 [History] Calcium Carbonate/Vitamin D3 [Calcium 600 mg-Vit D3 5 mcg (200 unit)] 1 each PO DAILY 10/14/20 [History] Diazepam [Valium] 5 mg PO TID PRN 10/14/20 [History] Acetaminophen Tab [Tylenol Tab] 1,000 mg PO Q6HR PRN #30 tablet 10/17/20 [Rx] Ibuprofen [Motrin] 600 mg PO Q8HR PRN #30 tab 10/17/20 [Rx] [place]-3 Fatty Acids/Fish Oil [Fish Oil 1,000 mg Softgel] 1 each PO DAILY 10/17/20 [History] Simethicone [Gas-X] 125 mg PO AC-TID PRN #20 capsule 10/17/20 [Rx] Follow up Appointment(s)/Referral(s): Amanda Flores MD [STAFF PHYSICIAN] - 10/25/20 Patient Instructions/Handouts: Laparoscopic Cholecystectomy (DC), Low Fat Diet (DC), *[facility] - Managing Your Pain After Surgery Without Opioids Activity/Diet/Wound Care/Special Instructions: Recommend low-fat diet for the next 2 days. No lifting over 10 pounds in 2 weeks until Oct 31. July shower. No bath tub soaks for two weeks until Oct 31. Diet as tolerated. Use Tylenol, simethicone and ibuprofen or Aleve scheduled for the next 24-48 hours for best pain relief. Use ice along incisions for today to prevent swelling. Discharge Disposition: HOME SELF-CARE
[2020-10-17 12:48] VITALS: RESP 16
[2020-10-17 14:46] VITALS: BP 106/66; PULSE 81
== END 2020-10-17 16:09 | disposition home or self-care (01) ==
LOC: OR 08:30
PROVIDERS: ATTEND Surgery Plastic and Reconstructive Surgery
DX: K80.10 Calculus of gallbladder with chronic cholecystitis without obstruction (principal); K66.0 Peritoneal adhesions (postprocedural) (postinfection); E78.5 Hyperlipidemia, unspecified; F32.9 Major depressive disorder, single episode, unspecified; F41.1 Generalized anxiety disorder; E66.09 Other obesity due to excess calories; Z68.30 Body mass index [BMI] 30.0-30.9, adult; E78.00 Pure hypercholesterolemia, unspecified; Z87.891 Personal history of nicotine dependence; Z87.19 Personal history of other diseases of the digestive system; Z82.49 Family history of ischemic heart disease and other diseases of the circulatory system; Z79.899 Other long term (current) drug therapy; F41.9 Anxiety disorder, unspecified; Z98.890 Other specified postprocedural states
CPT/HCPCS: 88304; 80053; 85025; 47563; J2250; J1100; J2710; J0690; J2405; J2001; J3010; J1170; J0330; J2704; J1644

== ENCOUNTER → 2021-02-20 | Outpatient (CLI) | payer MEDICARE ==
--- NOTE | 2021-02-21 11:06 | MM ---
Reason for exam: screening (asymptomatic). Last mammogram was performed 1 year and 4 months ago. History: Patient is postmenopausal. Taking unspecified hormones. Physical Findings: A clinical breast exam by your physician is recommended on an annual basis and results should be correlated with mammographic findings. MG 3D Screening Mammo W/Cad Bilateral CC and MLO view(s) were taken. Prior study comparison: November 04, 2019, bilateral MG 3d screening mammo w/cad. August 19, 2013, bilateral MG screening mammo w CAD. Finding #1: There are three 4-5 mm obscured round masses in the upper quadrant, posterior, subareolar position of the left breast. Finding #2: There are typically benign round calcifications in both breasts. New finding since November 04, 2019 and August 19, 2013. ASSESSMENT: Incomplete: need additional imaging evaluation, BI-RAD 0 RECOMMENDATION: Ultrasound of the left breast. [facility] will attempt to contact patient to return for ultrasound.
== END | disposition home or self-care (01) ==
LOC: RADMAMWWP 08:08
PROVIDERS: ATTEND Internal Medicine Geriatric Medicine
DX: Z12.31 Encounter for screening mammogram for malignant neoplasm of breast (principal)
CPT/HCPCS: 77063; 77067

== ENCOUNTER → 2021-03-13 | Outpatient (CLI) | payer MEDICARE ==
--- NOTE | 2021-03-13 09:30 | USB ---
Reason for exam: additional evaluation requested from abnormal screening. History: Patient is postmenopausal. Taking unspecified hormones. Physical Findings: Nurse did not find any significant physical abnormalities on exam. US Breast Workup Limited LT Left limited breast ultrasound including focal area of concern, retroareolar and axilla demonstrates no cystic or solid lesion seen. These results were verbally communicated with the patient and result sheet given to the patient on 03/13/21. ASSESSMENT: Negative, BI-RAD 1 RECOMMENDATION: Follow-up diagnostic mammogram of the left breast in 5 months.
== END | disposition home or self-care (01) ==
LOC: RADUSWWP 08:13
PROVIDERS: ATTEND Internal Medicine Geriatric Medicine
DX: R92.8 Other abnormal and inconclusive findings on diagnostic imaging of breast (principal)

== ENCOUNTER → 2021-09-20 | Outpatient (CLI) | payer MEDICARE ==
--- NOTE | 2021-09-20 10:07 | MM ---
Reason for Exam: Follow-up at short interval from prior study. Last screening mammogram was performed 7 month(s) ago. Patient History: Menarche at age 11. First Full-Term at age 27. Postmenopausal. Used Unspecified Hormone. Risk Values: Lizette 5 year model risk: 1.9%. NCI Lifetime model risk: 6.4%. Prior Study Comparison: 08/19/2013 Bilateral Screening Mammogram, [facility]. 11/04/2019 Bilateral Screening Mammogram, [facility]. 02/20/2021 Bilateral Screening Mammogram, [facility]. Tissue Density: Left: There are scattered fibroglandular densities. Findings: Analyzed By CAD. Resolution of previously noted tiny nodular densities left breast. No new nodules seen. No suspicious calcifications. Overall Assessment: Benign, BI-RAD 2 Management: Screening Mammogram of both breasts in 6 months. A clinical breast exam by your physician is recommended on an annual basis and results should be correlated with mammographic findings. This exam should not preclude additional follow-up of suspicious palpable abnormalities. Results were given to the patient verbally at the time of exam. Electronically signed and approved by: Austen Herr M.D. Radiologis
== END | disposition home or self-care (01) ==
LOC: RADMAMWWP 09:35
PROVIDERS: ATTEND Internal Medicine Geriatric Medicine
DX: R92.2 Inconclusive mammogram (principal)
CPT/HCPCS: 77065; G0279; 77061

== ENCOUNTER → 2022-07-06 | Outpatient (CLI) | payer MEDICARE ==
--- NOTE | 2022-07-06 13:10 | XR ---
EXAMINATION TYPE: XR lumbar spine 2 or 3V DATE OF EXAM: 07/06/2022 CLINICAL HISTORY: pain TECHNIQUE: Three views of the lumbar spine are submitted. COMPARISON: CT abdomen and pelvis 08/30/2020 FINDINGS: There are 6 lumbar type vertebral bodies identified. No acute fracture or dislocation. Levoscoliotic curvature of the lumbar spine with apex at L2-L3. Vertebral body heights are within normal limits. Multilevel disc space narrowing with endplate sclerosis and anterior osteophytosis. Multilevel facet arthropathy. The overlying soft tissue appears unremarkable. Atherosclerotic calcification of the ao rta. IMPRESSION: 1. No acute fracture. 2. Moderate multilevel degenerative disc disease and osteoarthritic changes. 3. Levoscoliotic curvature.
== END | disposition home or self-care (01) ==
LOC: RADXRMAIN 12:42
PROVIDERS: ATTEND Internal Medicine Geriatric Medicine
DX: M51.36 Other intervertebral disc degeneration, lumbar region (principal); M47.816 Spondylosis without myelopathy or radiculopathy, lumbar region
CPT/HCPCS: 72100

== ENCOUNTER → 2022-11-23 | Outpatient (CLI) | payer MEDICARE ==
--- NOTE | 2022-11-23 12:11 | XR ---
EXAMINATION TYPE: XR Hip Complete LT DATE OF EXAM: 11/23/2022 11:32 AM INDICATION: Patient age:Female; 67 years old; Reason for study: M25.552 pain L hip; [facility]. COMPARISON: None. TECHNIQUE: The left hip was examined in the frontal and lateral projections and a AP pelvis. FINDINGS: No evidence for acute process, joint dislocation or significant soft tissue swelling. Osteo phyte formation of the superior acetabulum of the hip. There is mild to moderate joint space 9. IMPRESSION: 1. No evidence for acute process. 2. Mild to moderate hip osteoarthrosis.
== END | disposition home or self-care (01) ==
LOC: RADXRMAIN 11:23
PROVIDERS: ATTEND Internal Medicine Geriatric Medicine
DX: M16.12 Unilateral primary osteoarthritis, left hip (principal)
CPT/HCPCS: 73502

== ENCOUNTER 2023-03-05 09:31 | Day surgery (SDC) | payer MEDICARE ==
[2023-03-01 14:32] VITALS: BMI 32.4
[~2023-03-05 09:31] MED LIST changes: -DEXAMETHASONE SOD PHOSPHATE 4 MG/ML 1 ML VIAL IV ONE; -HEPARIN SODIUM,PORCINE/PF 5,000 UNIT/0.5 ML SYRINGE SQ PRN; -HYDROmorphone 0.5 MG/0.5 ML SYRINGE IVP PRN; -LIDOCAINE 1% (10MG/ML) FOR IV START INTRADERMA PRN; -MIDAZOLAM 2 MG/2 ML VIAL IV PRN; -ONDANSETRON 4 MG/2 ML VIAL IVP ONE
[2023-03-05 10:39] VITALS: TEMP 97
[2023-03-05] MEDS ORDERED: PROPOFOL 10 MG/ML 20 ML VIAL IV ONE (10:39)
--- NOTE | 2023-03-05 11:03 | P.PCN ---
Date of Procedure: 03/05/23 Procedure(s) Performed: BRIEF HISTORY: Patient is a 67-year-old pleasant white female scheduled for an elective colonoscopy as a part of screening for colon cancer and family history of colon cancer. Her sister was diagnosed with colon cancer at age 45. PROCEDURE PERFORMED: Colonoscopy. PREOPERATIVE DIAGNOSIS: Screening for colon cancer and family history of colon cancer. IV sedation per Anesthesia. PROCEDURE: After informed consent was obtained, the patient, was brought into the endoscopy unit. IV sedation was administered by Anesthesia under continuous monitoring. Digital rectal examination was normal. Initially the Olympus CF-160 flexible video pediatric colonoscope was then inserted in the rectum, gradually advanced into the cecum without any difficulty. Careful examination was performed as the scope was gradually being withdrawn. Ileocecal valve and the appendiceal orifice were visualized and appeared normal. Prep was excellent. Mucosa of the cecum, ascending colon, transverse colon, descending colon, sigmoid colon, and rectum appeared normal. At her sigmoid diverticula cyst. Retroflexion was performed in the rectum and no lesions were seen. The patient tolerated the procedure well. IMPRESSION: Normal-appearing colon from rectum to cecum no evidence of colorectal neoplasia . Scattered small diverticula RECOMMENDATIONS: Findings of this examination were discussed with the patient as well as a family.. She was advised to have a repeat screening colonoscopy in 5 years because of the family history of colon cancer
[2023-03-05 11:27] VITALS: BP 136/76; PULSE 60; RESP 16
== END 2023-03-05 11:44 | disposition home or self-care (01) ==
LOC: ORWHC2ENDO 09:31
PROVIDERS: ATTEND Internal Medicine Gastroenterology
DX: Z12.11 Encounter for screening for malignant neoplasm of colon (principal); K57.30 Diverticulosis of large intestine without perforation or abscess without bleeding; I10 Essential (primary) hypertension; E78.5 Hyperlipidemia, unspecified; F41.9 Anxiety disorder, unspecified; M19.90 Unspecified osteoarthritis, unspecified site; Z79.82 Long term (current) use of aspirin; Z79.899 Other long term (current) drug therapy; Z79.1 Long term (current) use of non-steroidal anti-inflammatories (NSAID); Z80.0 Family history of malignant neoplasm of digestive organs; Z90.49 Acquired absence of other specified parts of digestive tract
CPT/HCPCS: J2704; G0105

== ENCOUNTER → 2023-04-22 | Outpatient (CLI) | payer MEDICARE ==
--- NOTE | 2023-04-22 17:57 | BD ---
EXAMINATION TYPE: Axial Bone Density DATE OF EXAM: 04/22/2023 CLINICAL HISTORY: 67 years old Female. ICD-10 CODE: M81.0 AGE RELATED OSTEOPOROSIS Height: 5 ft 1 in Weight: 192 FRAX RISK QUESTIONS: Alcohol (3 or more units per day): no Family History (Parent hip fracture): no Glucocorticoids (More than 3mos): no (Ex: prednisone, prednisolone, methylprednisolone, dexamethasone, and hydrocortisone). History of Fracture in Adulthood: no Secondary Osteoporosis: 1. Type 1 Diabetes: no 2. Hyperthyroidism: no 3. Menopause before 45: yes 4. Malnutrition: no 5. Chronic liver disease: no Rheumatoid Arthritis: no Current Tobacco Use: no RISK FACTORS HISTORY OF: Surgery to Spine/Hip(right/left)/Wrist (right/left): no MEDICATIONS: Thyroid Medications: none Osteoporosis Medications: none EXAM MEASUREMENTS: Bone mineral densitometry was performed using the LeadiD System. Bone mineral density as measured about the Lumbar spine is: ----- L1-L4(G/cm2): 1.652 T Score Values are as follows: ----- L1: 2.3 ----- L2: 2.3 ----- L3: 5.8 ----- L4: 4.8 ----- L1-L4: 3.9 Z Score Values are as follows: ----- L1: 3.2 ----- L2: 3.2 ----- L3: 6.7 ----- L4: 5.8 ----- L1-L4: 4.8 Bone mineral density has: increased 1.6 % since study of: 2019 Bone mineral density about the R hip (g/cm2): 0.859 Bone mineral density about the L hip (g/cm2): 0.991 T Score values are as follows: -----R Neck: -1.3 -----L Neck: -0.3 -----R Total: -0.2 -----L Total: 0.4 Z Score values are as follows: -----R Neck: -0.1 -----L Neck: 0.8 -----R Total: 0.7 -----L Total: 1.3 Bone mineral density has: decreased -4.4 % since study of: 2020 FRAX%s: The graph provided illustrates a 8.5 % chance for a major osteoporotic fx and a 0.9 % chance for the hips probability for fx in 10 years time. IMPRESSION: Osteopenia (T Score between -2.5 and -1). There is slightly increased risk of fracture and the patient may be considered for treatment. Re-Screen 2-5 years. NOTE: T-SCORE=SD OF THE YOUNG ADULT MEAN.
--- NOTE | 2023-04-23 16:06 | MM ---
Reason for Exam: Screening (asymptomatic). Last mammogram was performed 2 year(s) and 2 month(s) ago. Patient History: Menarche at age 11. First Full-Term at age 27. Postmenopausal. Used Unspecified Hormone. Risk Values: Lizette 5 year model risk: 1.9%. NCI Lifetime model risk: 6.2%. Prior Study Comparison: 11/04/2019 Bilateral Screening Mammogram, [facility]. 02/20/2021 Bilateral Screening Mammogram, [facility]. 09/20/2021 Left MG 3D diag mammo w/cad LT, [facility]. Tissue Density: There are scattered fibroglandular densities. Findings: Analyzed By CAD. Unchanged small oil cyst calcifications. There is no suspicious group of microcalcifications or new suspicious mass in either breast. Overall Assessment: Benign, BI-RAD 2 Management: Screening Mammogram of both breasts in 1 year. . Patient should continue monthly self-breast exams. A clinical breast exam by your physician is recommended on an annual basis. This exam should not preclude additional follow-up of suspicious palpable abnormalities. Note on Lizette scores and lifetime risk: 1. A Lizette score greater than 3% is considered moderate risk. If this is the case, consider specialist referral to assess eligibility for a risk reducing agent. 2. If overall lifetime risk for the development of breast cancer is 20% or higher, the patient may qualify for future screening with alternating mammogram and breast MRI. Electronically signed and approved by: Mono Barriga M.D. Radiologist
== END | disposition home or self-care (01) ==
LOC: RADBDWWP 10:47
PROVIDERS: ATTEND Internal Medicine Geriatric Medicine
DX: Z12.31 Encounter for screening mammogram for malignant neoplasm of breast (principal); M85.851 Other specified disorders of bone density and structure, right thigh; M81.0 Age-related osteoporosis without current pathological fracture; Z78.0 Asymptomatic menopausal state
CPT/HCPCS: 77063; 77067; 77080

== ENCOUNTER → 2023-07-24 | Outpatient (CLI) | payer MEDICARE ==
--- NOTE | 2023-07-24 17:54 | XR ---
EXAMINATION TYPE: XR chest 2V DATE OF EXAM: 07/24/2023 COMPARISON: NONE HISTORY: Shortness of breath TECHNIQUE: Frontal and lateral views of the chest are obtained. FINDINGS: Scattered senescent parenchymal changes noted. Hyperinflation compatible with COPD. No evidence for infiltrate. No evidence for atelectasis. Heart size is stable. Mediastinal structures are stable and grossly unremarkable. No evidence for hilar prominence. Degenerative changes dorsal spine. IMPRESSION: 1. No evidence for acute pulmonary disease.
--- NOTE | 2023-07-24 17:55 | XR ---
EXAMINATION TYPE: XR thoracic spine complete DATE OF EXAM: 07/24/2023 CLINICAL HISTORY: pain TECHNIQUE: Frontal, lateral, and swimmer's view of thoracic spine are obtained. COMPARISON: None. FINDINGS: Thoracic spine show satisfactory alignment without evidence of acute fracture or dislocatio n. S-shaped scoliosis. Vertebral body heights are preserved. Moderate multilevel degenerative disc s pace narrowing and spondylosis. Visualized ribs are unremarkable. IMPRESSION: No acute fracture or dislocation is seen in the thoracic spine. ICD 10 NO FRACTURE, INIT IAL EVALUATION
== END | disposition home or self-care (01) ==
LOC: RADXRMAIN 16:23
PROVIDERS: ATTEND Internal Medicine Geriatric Medicine
DX: S23.41XA Sprain of ribs, initial encounter (principal); M54.9 Dorsalgia, unspecified; R06.02 Shortness of breath; X58.XXXA Exposure to other specified factors, initial encounter
CPT/HCPCS: 71046; 72072

== ENCOUNTER → 2024-03-19 | Outpatient (CLI) | payer MEDICARE ==
[2024-03-19 15:04] LABS: Basophils # (A) 0.05 X 10*3/uL (0.00-0.10); Basophils % (A) 0.5 %; Eosinophils # (A) 0.03 X 10*3/uL (0.04-0.35); Eosinophils % (A) 0.3 %; HCT 39.5 % (37.2-46.3); HGB 13.4 g/dL (12.0-15.0); Lymphocytes # (A) 1.69 X 10*3/uL (0.90-5.00); Lymphocytes % (A) 18.6 %; MCH 32.3 pg (27.0-32.0); MCHC 33.9 g/dL (32.0-37.0); MCV 95.2 FL (80.0-97.0); Mean Platelet Volume 11.9 FL (9.5-12.2); Monocytes # (A) 0.59 X 10*3/uL (0.20-1.00); Monocytes % (A) 6.5 %; NRBC Per 100 WBC 0 X 10*3/uL (0.00-0.01); Neutrophils # (A) 6.71 X 10*3/uL (1.80-7.70); Neutrophils % (A) 73.7 %; Platelet Count 255 X 10*3/uL (140-440); RBC 4.15 X 10*6/uL (4.10-5.20); RDW 12.8 % (11.5-14.5); WBC 9.11 X 10*3/uL (4.50-10.00)
[2024-03-19 15:16] LABS: ALT 57 U/L (8-44); AST 51 U/L (13-35); Albumin 4.5 g/dL (3.8-4.9); Albumin/Globulin Ratio 1.61 Ratio (1.60-3.17); Alkaline Phosphatase 104 U/L (41-126); Blood Urea Nitrogen 30.3 mg/dL (9.0-27.0); Calcium 10.3 mg/dL (8.7-10.3); Carbon Dioxide 21.5 mmol/L (21.6-31.8); Chloride 106 mmol/L (96-109); Chol/HDL Ratio 4.57 Ratio; Globulin 2.8 g/dL (1.6-3.3); Glucose 101 mg/dL (70-110); LDL Cholesterol,Calculated 94.9 mg/dL (0.0-131.0); Potassium 4.2 mmol/L (3.5-5.5); Sodium 143 mmol/L (135-145); Total Bilirubin 0.4 mg/dL (0.3-1.2); Total Protein 7.3 g/dL (6.2-8.2)
== END | disposition home or self-care (01) ==
LOC: LABWHC1 11:34
PROVIDERS: ATTEND Internal Medicine Geriatric Medicine
DX: Z00.00 Encounter for general adult medical examination without abnormal findings (principal); E78.5 Hyperlipidemia, unspecified; E11.51 Type 2 diabetes mellitus with diabetic peripheral angiopathy without gangrene; E07.9 Disorder of thyroid, unspecified
CPT/HCPCS: 36415; 80053; 80061; 82043; 82570; 83036; 84443; 85025

== ENCOUNTER → 2024-06-11 | Outpatient (CLI) | payer MEDICARE ==
--- NOTE | 2024-06-11 12:36 | MM ---
Reason for Exam: Screening (asymptomatic). Last mammogram was performed 1 year(s) and 2 month(s) ago. Patient History: Menarche at age 11. First Full-Term at age 27. Postmenopausal. Used Unspecified Hormone. Risk Values: Lizette 5 year model risk: 1.9%. NCI Lifetime model risk: 5.6%. Prior Study Comparison: 02/20/2021 Bilateral Screening Mammogram, [facility]. 09/20/2021 Left MG 3D diag mammo w/cad LT, [facility]. 04/22/2023 Bilateral MG 3D screening mammo w/cad, [facility]. Tissue Density: There are scattered areas of fibroglandular density. Findings: Analyzed By CAD. There is no suspicious group of microcalcifications or new suspicious mass in either breast. Overall Assessment: Negative, BI-RAD 1 Management: Screening Mammogram of both breasts in 1 year. . Patient should continue monthly self-breast exams. A clinical breast exam by your physician is recommended on an annual basis. This exam should not preclude additional follow-up of suspicious palpable abnormalities. Note on Lizette scores and lifetime risk: 1. A Lizette score greater than 3% is considered moderate risk. If this is the case, consider specialist referral to assess eligibility for a risk reducing agent. 2. If overall lifetime risk for the development of breast cancer is 20% or higher, the patient may qualify for future screening with alternating mammogram and breast MRI. [facility], , 06/11/2024 12:34 PM. Electronically signed and approved by: Austen Herr M.D. Radiologis
== END | disposition home or self-care (01) ==
LOC: RADMAMWWP 12:18
PROVIDERS: ATTEND Internal Medicine Geriatric Medicine
DX: Z12.31 Encounter for screening mammogram for malignant neoplasm of breast (principal); R92.323 Mammographic fibroglandular density, bilateral breasts; Z78.0 Asymptomatic menopausal state
CPT/HCPCS: 77063; 77067